=== PATIENT | male | born 2000 | race American Indian/Alaskan Native ===

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

== ENCOUNTER 2019-02-09 23:13 | Emergency (ER) | payer OTHER ==
[2019-02-10 00:13] VITALS: BP 129/91; PULSE 63
[2019-02-10] MEDS ORDERED: Ondansetron 4 MG/2 ML SDV IVPUSH ONE (00:25)
[2019-02-10] MEDS ORDERED: LORazepam 2 MG/ML SDV IVPUSH ONE (00:25)
[2019-02-10] MEDS ORDERED: Sodium Chloride 0.9% 1,000 ML IV SCH (00:30)
--- NOTE | 2019-02-10 00:30 | EDM.PDOC ---
ED HPI GENERAL MEDICAL PROBLEM - General Chief Complaint: Abdominal Pain Stated Complaint: LIGHT HEADED,STOMACH PAINS Time Seen by Provider: 02/10/19 00:15 Source of Information: Reports: Patient History Limitations: Reports: No Limitations - History of Present Illness INITIAL COMMENTS - FREE TEXT/NARRATIVE: 18-year-old male with cyclic vomiting syndrome which has been believe to be related to marijuana use in the past had been doing well for the past year but became nauseated this morning, has been vomiting all day, significant abdominal cramps and chills. No fever. This is very similar to his past episodes. He admits to using marijuana within the last week. Onset: Gradual (Symptoms started this morning) Duration: Hour(s): (Been sick for 12 hours) Location: Reports: Abdomen Improves with: Reports: None Abdominal Pain Score (Numeric/FACES): 8 - Related Data Allergies Allergy/AdvReac Type Severity Reaction Status Date / Time No Known Allergies Allergy Verified 02/10/19 00:07 Home Meds: Home Meds Omeprazole 20 mg PO BID 05/06/18 [History] Past Medical History HEENT History: Reports: Impaired Vision Gastrointestinal History: Reports: Chronic Diarrhea, GERD Musculoskeletal History: Reports: Fracture Other Musculoskeletal History: right foot, left wrist Psychiatric History: Reports: ADHD - Infectious Disease History Infectious Disease History: Reports: Chicken Pox, Influenza - Past Surgical History Head Surgeries/Procedures: Reports: None HEENT Surgical History: Reports: None Cardiovascular Surgical History: Reports: None Respiratory Surgical History: Reports: None GI Surgical History: Reports: Cholecystectomy, Colonoscopy, EGD Musculoskeletal Surgical History: Reports: None Dermatological Surgical History: Reports: None Social & Family History - Family History Family Medical History: Noncontributory - Tobacco Use Smoking Status *Q: Never Smoker - Caffeine Use Caffeine Use: Reports: Soda - Recreational Drug Use Recreational Drug Use: No ED ROS GENERAL - Review of Systems Review Of Systems: See Below Constitutional: Reports: Chills, Malaise. Denies: Fever HEENT: Denies: Throat Pain Respiratory: Denies: Shortness of Breath Cardiovascular: Denies: Chest Pain GI/Abdominal: Reports: Abdominal Pain, Nausea, Vomiting. Denies: Diarrhea : Reports: No Symptoms Musculoskeletal: Reports: No Symptoms Neurological: Denies: Headache ED EXAM, GI/ABD - Physical Exam Exam: See Below Exam Limited By: No Limitations General Appearance: Alert, Mild Distress (Looks uncomfortable) Eyes: Bilateral: Normal Appearance (No jaundice) Respiratory/Chest: No Respiratory Distress, Lungs Clear Cardiovascular: Regular Rate, Rhythm GI/Abdominal Exam: Tender (Mildly tender in the [place]-umbilical area only), Abnormal Bowel Sounds (Bowel sounds are hypoactive) Neurological: Alert, Oriented Psychiatric: Anxious Skin Exam: Warm, Dry Course - Vital Signs Last Recorded V/S: Last Vital Signs Temp 95.1 F L 02/10/19 00:13 Pulse 63 02/10/19 00:13 Resp 19 02/10/19 00:13 BP 129/91 H 02/10/19 00:13 Pulse Ox 100 02/10/19 00:13 - Orders/Labs/Meds Meds: Medications Discontinued Medications Generic Name Dose Route Start Last Admin Trade Name Freq PRN Reason Stop Dose Admin Sodium Chloride 1,000 mls @ 1,000 mls/hr 02/10/19 00:30 02/10/19 00:42 Normal Saline IV 1,000 mls/hr ASDIRECTED CHRIS Administration Lorazepam 1 mg 02/10/19 00:25 02/10/19 00:42 Ativan IVPUSH 02/10/19 00:26 1 mg ONETIME ONE Administration Ondansetron HCl 4 mg 02/10/19 00:25 02/10/19 00:42 Zofran IVPUSH 02/10/19 00:26 4 mg ONETIME ONE Administration - Re-Assessments/Exams Free Text/Narrative Re-Assessment/Exam: 02/10/19 00:29 An IV was started, patient was given 1 mg of IV Ativan and 4 mg of IV Zofran. He 'll be given 1 L of normal saline. Labs will not be repeated, they've always been normal in the past. 02/10/19 01:38 Patient slept soundly for an hour. He was discharged and encouraged to increase activity and diet slowly, concentrate on getting fluids and avoid marijuana. He' ll return if symptoms recur. Departure - Departure Time of Disposition: 01:49 Disposition: Home, Self-Care 01 Clinical Impression: Nausea & vomiting Qualifiers: Vomiting type: unspecified Vomiting Intractability: non-intractable Qualified Code(s): R11.2 - Nausea with vomiting, unspecified - Discharge Information Instructions: Nausea and Vomiting, Adult, [id number] Referrals: PCP,None [Primary Care Provider] - Forms: ED Department Discharge Care Plan Goals: Rest tonight, increase diet and activity tomorrow and concentrate on staying hydrated. Avoid marijuana. Return if symptoms recur in the next 24-48 hours and are not improving.
== END 2019-02-10 01:49 | disposition home or self-care (01) ==
LOC: JP.ED 23:13
DX: R11.2 Nausea with vomiting, unspecified (principal); K21.9 Gastro-esophageal reflux disease without esophagitis; Z90.49 Acquired absence of other specified parts of digestive tract; Z79.899 Other long term (current) drug therapy
CPT/HCPCS: 96361; 96374; 96375; 99283; J2060; J2405; J7030

== ENCOUNTER 2019-02-11 10:22 | Emergency (ER) | payer OTHER ==
[2019-02-11 10:49] VITALS: BP 153/98; PULSE 60
[2019-02-11] MEDS ORDERED: Sodium Chloride 0.9% 1,000 ML IV STA (11:11)
[2019-02-11] MEDS ORDERED: LORazepam 2 MG/ML SDV IVPUSH ONE ×2 (11:12→13:01)
[2019-02-11] MEDS ORDERED: Ondansetron 4 MG/2 ML SDV IVPUSH ONE (11:12)
--- NOTE | 2019-02-11 11:14 | EDM.PDOC ---
ED HPI GENERAL MEDICAL PROBLEM - General Chief Complaint: Gastrointestinal Problem Stated Complaint: VOMITING Time Seen by Provider: 02/11/19 11:14 Source of Information: Reports: Patient - History of Present Illness INITIAL COMMENTS - FREE TEXT/NARRATIVE: 18 years old male patient with history of cyclic vomiting presented with chief complaint of nausea and vomiting started 3 days ago. Patient was here in the ER and was given Zofran and Ativan and the fluid. Stated his symptoms improved for one day then started vomiting again. Denies any abdominal pain but his abdomen feels sore from all the vomiting and dry heaving. Denies any fever. Denies any urinary symptom. Denies any chest pain shortness breath. Denies any cough. Denies any constipation but he feels like his stool may be a little diarrhea. Denies any suspicious food. No recent antibiotic use. No sick contacts. No recent travel. He used marijuana last week. Abdominal Pain Score (Numeric/FACES): 8 - Related Data Allergies Allergy/AdvReac Type Severity Reaction Status Date / Time No Known Allergies Allergy Verified 02/11/19 10:43 Home Meds: Home Meds Omeprazole 20 mg PO BID 05/06/18 [History] Past Medical History HEENT History: Reports: Impaired Vision Gastrointestinal History: Reports: Chronic Diarrhea, GERD Musculoskeletal History: Reports: Fracture Other Musculoskeletal History: right foot, left wrist Psychiatric History: Reports: ADHD - Infectious Disease History Infectious Disease History: Reports: Chicken Pox, Influenza - Past Surgical History Head Surgeries/Procedures: Reports: None HEENT Surgical History: Reports: None Cardiovascular Surgical History: Reports: None Respiratory Surgical History: Reports: None GI Surgical History: Reports: Cholecystectomy, Colonoscopy, EGD Musculoskeletal Surgical History: Reports: None Dermatological Surgical History: Reports: None Social & Family History - Family History Family Medical History: Noncontributory - Tobacco Use Smoking Status *Q: Never Smoker Second Hand Smoke Exposure: No - Caffeine Use Caffeine Use: Reports: Coffee, Soda - Recreational Drug Use Recreational Drug Use: No ED ROS GENERAL - Review of Systems Review Of Systems: ROS reveals no pertinent complaints other than HPI. ED EXAM, GI/ABD - Physical Exam Exam: See Below Exam Limited By: No Limitations General Appearance: Alert, No Apparent Distress Nose: Normal Inspection Throat/Mouth: Normal Inspection Head: Atraumatic, Normocephalic Neck: Normal Inspection, Supple Respiratory/Chest: No Respiratory Distress, Lungs Clear, Normal Breath Sounds, Chest Non-Tender. No: Respiratory Distress, Crackles, Rales, Rhonchi Cardiovascular: Normal Peripheral Pulses, Regular Rate, Rhythm, No Edema, No Murmur. No: Bradycardia, Tachycardia GI/Abdominal Exam: Normal Bowel Sounds, Soft, Non-Tender, No Organomegaly, No Distention, No Abnormal Bruit, No Mass (Male) Exam: No Hernia Neurological: Alert, Oriented, CN II-XII Intact, Normal Cognition, No Motor/ Sensory Deficits Psychiatric: Normal Affect, Normal Mood Course - Vital Signs Last Recorded V/S: Last Vital Signs Temp 36.0 C 02/11/19 10:56 Pulse 60 02/11/19 10:56 Resp 16 02/11/19 10:56 BP 153/98 H 02/11/19 10:56 Pulse Ox 97 02/11/19 10:56 - Orders/Labs/Meds Orders: Active Orders 24 hr Category Date Time Status Cardiac Monitoring [RC] .As Directed Care 02/11/19 11:09 Active UA W/MICROSCOPIC [URIN] Stat Lab 02/11/19 11:09 Ordered Labs: Laboratory Tests 02/11/19 02/11/19 Range/Units 11:26 11:26 WBC 9.6 (4.5-11.0) K/uL RBC 5.30 (4.30-5.90) M/uL Hgb 15.7 H (12.0-15.0) g/dL Hct 45.6 (40.0-54.0) % MCV 86 (80-98) fL MCH 30 (27-31) pg MCHC 34 (32-36) % Plt Count 294 (150-400) K/uL Neut % (Auto) 81 H (36-66) % Lymph % (Auto) 12 L (24-44) % [place] % (Auto) 6 (2-6) % Eos % (Auto) 0 L (2-4) % Baso % (Auto) 0 (0-1) % Sodium 139 L (140-148) mmol/L Potassium 3.0 L (3.6-5.2) mmol/L Chloride 101 (100-108) mmol/L Carbon Dioxide 27 (21-32) mmol/L Anion Gap 14.0 (5.0-14.0) mmol/L BUN 18 (7-18) mg/dL Creatinine 1.1 (0.8-1.3) mg/dL Est Cr Clr Drug Dosing 102.58 mL/min Estimated GFR (MDRD) > 60 (>60) Glucose 120 H (74-106) mg/dL Calcium 9.1 (8.5-10.1) mg/dL Total Bilirubin 0.9 (0.2-1.0) mg/dL AST 19 (15-37) U/L ALT 45 (12-78) U/L Alkaline Phosphatase 66 (46-116) U/L C-Reactive Protein < 0.30 (0.0-0.3) mg/dL Total Protein 7.4 (6.4-8.2) g/dL Albumin 4.3 (3.4-5.0) g/dL Globulin 3.1 (2.3-3.5) g/dL Albumin/Globulin Ratio 1.4 (1.2-2.2) Lipase 86 (73-393) U/L Meds: Medications Discontinued Medications Generic Name Dose Route Start Last Admin Trade Name Freq PRN Reason Stop Dose Admin Sodium Chloride 1,000 mls @ 999 mls/hr 02/11/19 11:11 02/11/19 11:21 Normal Saline IV 02/11/19 12:11 999 mls/hr .BOLUS STA Administration Lorazepam 1 mg 02/11/19 11:12 02/11/19 11:21 Ativan IVPUSH 02/11/19 11:13 1 mg BEDTIME ONE Administration Lorazepam 1 mg 02/11/19 13:01 02/11/19 13:05 Ativan IVPUSH 02/11/19 13:02 1 mg ONETIME ONE Administration Ondansetron HCl 4 mg 02/11/19 11:12 02/11/19 11:21 Zofran IVPUSH 02/11/19 11:13 4 mg ONETIME ONE Administration Potassium Chloride 30 meq 02/11/19 12:30 02/11/19 12:25 Potassium Chloride PO 02/11/19 12:31 30 meq ONETIME ONE Administration - Radiology Interpretation Free Text/Narrative:: Patient was seen and examined shortly after arrival. Stable. Given 1 L normal saline bolus and 4 mg IV Zofran. Patient requested Ativan. Was given 1 mg IV Ativan. Lab reviewed with the patient. Potassium 3. He was given 30 mEq potassium chloride. Patient vomited once again. Was given another milligram of IV Ativan. As she stated the only thing work for his vomiting is Ativan and does want take more Zofran. Symptoms improved. No ominous sign. No sign of acute appendicitis, colitis, bowel obstruction, ascending cholangitis, perforation, sepsis, etc. At this point this is most likely cyclic vomiting and possibly aggravated by his marijuana. Advised to quit using marijuana. Patient requested a prescription for Ativan and was advised to follow-up with his doctor for that. I'll give him a prescription for Zofran. Does come back if symptom worsen. Otherwise follow up with his primary doctor. Also advised to eat more potassium rich food-like banana. Repeat potassium level in 3-4 days. Patient agrees with the plan. Stable for discharge. Departure - Departure Time of Disposition: 13:21 Disposition: Home, Self-Care 01 Condition: Good Clinical Impression: Vomiting, Vomiting - Discharge Information Instructions: Nausea and Vomiting, Adult Referrals: PCP,None [Primary Care Provider] - Forms: ED Department Discharge Additional Instructions: Rest and stay well-hydrated Drink plenty fluids Eat more potassium rich food-like banana and repeat potassium level in 3-4 days quit using marijuana Close follow-up with PCP Come back if symptom worsen - My Orders Last 24 Hours: My Active Orders 02/11/19 11:09 Cardiac Monitoring [RC] .As Directed UA W/MICROSCOPIC [URIN] Stat - Assessment/Plan Last 24 Hours: My Active Orders 02/11/19 11:09 Cardiac Monitoring [RC] .As Directed UA W/MICROSCOPIC [URIN] Stat Plan: Rest and stay well-hydrated Drink plenty fluids Eat more potassium rich food-like banana and repeat potassium level in 3-4 days quit using marijuana Close follow-up with PCP Come back if symptom worsen
[2019-02-11] MEDS ORDERED: Potassium Chloride 20 MEQ Tab.ER PO ONE (12:18)
[2019-02-11] MEDS ORDERED: Potassium Chloride 10 MEQ Cap.ER PO ONE (12:30)
== END 2019-02-11 13:29 | disposition home or self-care (01) ==
LOC: JP.ED 10:22
DX: R11.2 Nausea with vomiting, unspecified (principal); K21.9 Gastro-esophageal reflux disease without esophagitis; Z79.899 Other long term (current) drug therapy
CPT/HCPCS: 36415; 80053; 83690; 85025; 86140; 96361; 96374; 96375; 96376; 99284; A9270; J2060; J2405; J7030

== ENCOUNTER 2019-03-06 22:28 | Emergency (ER) | payer OTHER ==
[2019-03-06 22:46] VITALS: BP 143/99
[2019-03-06] MEDS: Sodium Chloride 0.9% 1,000 ML IV ONE (23:46)
[2019-03-06] MEDS: Prochlorperazine 10 MG/2 ML SDV IVPUSH ONE (23:47)
[2019-03-06] MEDS: Sodium Chloride 0.9% 10 ML Syringe FLUSH PRN (23:50)
[2019-03-06] MEDS: diphenhydrAMINE 50 MG/ML SDV IVPUSH ONE (23:51)
[2019-03-07] MEDS: Sodium Chloride 0.9% 1,000 ML IV ONE (00:48)
--- NOTE | 2019-03-07 01:41 | EDM.PDOC ---
ED HPI GENERAL MEDICAL PROBLEM - General Chief Complaint: Gastrointestinal Problem Stated Complaint: THROWING UP Time Seen by Provider: 03/06/19 23:12 Source of Information: Reports: Patient History Limitations: Reports: No Limitations - History of Present Illness INITIAL COMMENTS - FREE TEXT/NARRATIVE: This patient comes in for vomiting for the past few days he has been treated a number of times for vomiting episodes. 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 He denies using marijuana any more however. He does not have a PCP. He said last year he had an an EGD and saw a GI specialist in [place]. He would like something for the nausea and thinks that fluids may help. abd pain Pain Score (Numeric/FACES): 8 - Related Data Allergies Allergy/AdvReac Type Severity Reaction Status Date / Time No Known Allergies Allergy Verified 03/06/19 23:09 Home Meds: Home Meds Omeprazole 20 mg PO BID 05/06/18 [History] Past Medical History HEENT History: Reports: Impaired Vision Gastrointestinal History: Reports: GERD Musculoskeletal History: Reports: Fracture, Other (See Below) Other Musculoskeletal History: right foot, left wrist Neurological History: Reports: Concussion Psychiatric History: Reports: ADHD - Infectious Disease History Infectious Disease History: Reports: Chicken Pox - Past Surgical History Head Surgeries/Procedures: Reports: None Respiratory Surgical History: Reports: None GI Surgical History: Reports: Cholecystectomy, Colonoscopy, EGD Social & Family History - Family History Family Medical History: Noncontributory - Tobacco Use Smoking Status *Q: Never Smoker - Caffeine Use Caffeine Use: Reports: Soda - Recreational Drug Use Recreational Drug Use: No ED ROS GENERAL - Review of Systems Review Of Systems: ROS reveals no pertinent complaints other than HPI. ED EXAM, GI/ABD - Physical Exam Exam: See Below Exam Limited By: No Limitations General Appearance: Alert, WD/WN, Active Emesis (There appears to be having dry heaves) Eyes: Bilateral: Normal Appearance Throat/Mouth: Normal Inspection Head: Atraumatic Neck: Normal Inspection Respiratory/Chest: Lungs Clear Cardiovascular: Regular Rate, Rhythm GI/Abdominal Exam: Normal Bowel Sounds, Soft, Non-Tender Extremities: Normal Inspection Neurological: Alert, Oriented Psychiatric: Normal Affect Skin Exam: Warm, Dry Course - Vital Signs Last Recorded V/S: Last Vital Signs Temp 35.7 C 03/06/19 23:10 Pulse 83 03/06/19 23:10 Resp 16 03/06/19 23:10 BP 143/99 H 03/06/19 23:10 Pulse Ox 94 L 03/06/19 23:10 - Orders/Labs/Meds Orders: Active Orders 24 hr Category Date Time Status Sodium Chloride 0.9% [Normal Saline] 1,000 ml Med 03/07/19 00:44 Active IV .BOLUS Sodium Chloride 0.9% [Saline Flush] Med 03/06/19 23:32 Active 10 ml FLUSH ASDIRECTED PRN Saline Lock Insert [OM.PC] Urgent Oth 03/06/19 23:32 Ordered Medication Orders Sodium Chloride (Normal Saline) 1,000 mls @ 999 mls/hr IV .BOLUS ONE Stop: 03/07/19 01:44 Last Admin: 03/07/19 00:48 Dose: 999 mls/hr Sodium Chloride (Saline Flush) 10 ml FLUSH ASDIRECTED PRN PRN Reason: Keep Vein Open Last Admin: 03/06/19 23:50 Dose: 10 ml Labs: Laboratory Tests 03/06/19 03/06/19 Range/Units 23:32 23:32 WBC 11.5 H (4.5-11.0) K/uL RBC 5.12 (4.30-5.90) M/uL Hgb 15.1 H (12.0-15.0) g/dL Hct 43.7 (40.0-54.0) % MCV 85 (80-98) fL MCH 30 (27-31) pg MCHC 35 (32-36) % Plt Count 330 (150-400) K/uL Neut % (Auto) 88 H (36-66) % Lymph % (Auto) 9 L (24-44) % [place] % (Auto) 3 (2-6) % Eos % (Auto) 0 L (2-4) % Baso % (Auto) 0 (0-1) % Sodium 138 L (140-148) mmol/L Potassium 3.5 L (3.6-5.2) mmol/L Chloride 101 (100-108) mmol/L Carbon Dioxide 24 (21-32) mmol/L Anion Gap 16.5 H (5.0-14.0) mmol/L BUN 8 D (7-18) mg/dL Creatinine 0.8 (0.8-1.3) mg/dL Est Cr Clr Drug Dosing 135.00 mL/min Estimated GFR (MDRD) > 60 (>60) Glucose 124 H (74-106) mg/dL Calcium 9.4 (8.5-10.1) mg/dL Total Bilirubin 0.7 (0.2-1.0) mg/dL AST 15 (15-37) U/L ALT 49 (12-78) U/L Alkaline Phosphatase 71 (46-116) U/L Total Protein 7.7 (6.4-8.2) g/dL Albumin 4.5 (3.4-5.0) g/dL Globulin 3.2 (2.3-3.5) g/dL Albumin/Globulin Ratio 1.4 (1.2-2.2) Meds: Medications Generic Name Dose Route Start Last Admin Trade Name Tanika PRN Reason Stop Dose Admin Sodium Chloride 1,000 mls @ 999 mls/hr 03/07/19 00:44 03/07/19 00:48 Normal Saline IV 03/07/19 01:44 999 mls/hr .BOLUS ONE Administration Sodium Chloride 10 ml 03/06/19 23:32 03/06/19 23:50 Saline Flush FLUSH 10 ml ASDIRECTED PRN Administration Keep Vein Open Discontinued Medications Generic Name Dose Route Start Last Admin Trade Name Leiq PRN Reason Stop Dose Admin Diphenhydramine HCl 25 mg 03/06/19 23:32 03/06/19 23:51 Benadryl IVPUSH 03/06/19 23:33 25 mg ONETIME ONE Administration Sodium Chloride 1,000 mls @ 999 mls/hr 03/06/19 23:32 03/06/19 23:46 Normal Saline IV 03/07/19 00:32 999 mls/hr .BOLUS ONE Administration Prochlorperazine Edisylate 10 mg 03/06/19 23:32 03/06/19 23:47 Compazine IVPUSH 03/06/19 23:33 10 mg ONETIME ONE Administration - Re-Assessments/Exams Free Text/Narrative Re-Assessment/Exam: 03/07/19 01:38 IV was established he was given 2 L IV normal saline. He also received Compazine 10 mg and Benadryl 25 mg IV. When checked after approximately 1.5 L of IV fluid he said he feels much better and is feeling like he can go home now. He asked for medications for nausea to go home with he requested something like a Compazine I gave him so give him Phenergan he is aware that this causes a lot of sedation and will impair driving. His girlfriend or significant other will be driving for him Departure - Departure Time of Disposition: 01:39 Disposition: Home, Self-Care 01 Condition: Fair Clinical Impression: Cyclic vomiting syndrome, Cyclic vomiting - Discharge Information Referrals: PCP,None [Primary Care Provider] - Additional Instructions: For nausea take Phenergan 25 mg orally every 6-8 hours. This medication can cause severe sedation and impair driving so don't ever operate a vehicle or dangerous machinery while you're using this medication. I recommend you get a regular family doctor locally. - My Orders Last 24 Hours: My Active Orders 03/06/19 23:32 Sodium Chloride 0.9% [Saline Flush] 10 ml FLUSH ASDIRECTED PRN Saline Lock Insert [OM.PC] Urgent 03/07/19 00:44 Sodium Chloride 0.9% [Normal Saline] 1,000 ml IV .BOLUS - Assessment/Plan Last 24 Hours: My Active Orders 03/06/19 23:32 Sodium Chloride 0.9% [Saline Flush] 10 ml FLUSH ASDIRECTED PRN Saline Lock Insert [OM.PC] Urgent 03/07/19 00:44 Sodium Chloride 0.9% [Normal Saline] 1,000 ml IV .BOLUS
== END 2019-03-07 01:53 | disposition home or self-care (01) ==
LOC: JP.ED 22:28
DX: G43.A0 Cyclical vomiting, in migraine, not intractable (principal); K21.9 Gastro-esophageal reflux disease without esophagitis; Z79.899 Other long term (current) drug therapy
CPT/HCPCS: 36415; 80053; 85025; 96361; 96374; 96375; 99284; J0780; J1200; J7030

== ENCOUNTER 2019-11-09 16:40 | Emergency (ER) | payer OTHER ==
[2019-11-09 16:51] VITALS: BP 138/96; PULSE 66
[2019-11-09] MEDS ORDERED: Ondansetron 4 MG/2 ML SDV IVPUSH ONE ×2 (16:54→18:09)
[2019-11-09] MEDS ORDERED: Sodium Chloride 0.9% 1,000 ML IV SCH ×2 (17:00→18:15)
--- NOTE | 2019-11-09 17:20 | EDM.PDOC ---
<Kiana Monreal - Last Filed: 11/09/19 18:11> ED HPI GENERAL MEDICAL PROBLEM - General Chief Complaint: Gastrointestinal Problem Stated Complaint: VOMITING,BODY ACHES Time Seen by Provider: 11/09/19 17:20 Source of Information: Reports: Patient History Limitations: Reports: No Limitations - History of Present Illness INITIAL COMMENTS - FREE TEXT/NARRATIVE: pt arrived with some upper abdomanal pain and marked vomiting for the past 2 days, He has had episodes like this in the past. He has had a jackie. Onset: Other (last 2 days. ) Duration: Hour(s): Location: Reports: Abdomen Associated Symptoms: Reports: Nausea/Vomiting - Related Data Allergies Allergy/AdvReac Type Severity Reaction Status Date / Time No Known Allergies Allergy Verified 11/09/19 16:54 Home Meds: Home Meds Omeprazole 20 mg PO BID 05/06/18 [History] Citalopram [Citalopram HBr] 10 mg PO DAILY 11/09/19 [History] Past Medical History HEENT History: Reports: Impaired Vision Gastrointestinal History: Reports: GERD Musculoskeletal History: Reports: Fracture, Other (See Below) Other Musculoskeletal History: right foot, left wrist Neurological History: Reports: Concussion Psychiatric History: Reports: ADHD - Infectious Disease History Infectious Disease History: Reports: Chicken Pox - Past Surgical History Head Surgeries/Procedures: Reports: None HEENT Surgical History: Reports: None Cardiovascular Surgical History: Reports: None Respiratory Surgical History: Reports: None GI Surgical History: Reports: Cholecystectomy, Colonoscopy, EGD Neurological Surgical History: Reports: None Musculoskeletal Surgical History: Reports: None Dermatological Surgical History: Reports: None Social & Family History - Family History Family Medical History: Noncontributory - Tobacco Use Smoking Status *Q: Never Smoker Second Hand Smoke Exposure: No - Caffeine Use Caffeine Use: Reports: Soda - Recreational Drug Use Recreational Drug Use: Yes Drug Use in Last 12 Months: Yes Recreational Drug Type: Reports: Marijuana/Hashish Recreational Drug Use Frequency: Weekly ED ROS GENERAL - Review of Systems Review Of Systems: See Below Constitutional: Reports: No Symptoms HEENT: Reports: No Symptoms Respiratory: Reports: No Symptoms Cardiovascular: Reports: No Symptoms Endocrine: Reports: No Symptoms GI/Abdominal: Reports: Abdominal Pain, Nausea, Vomiting : Reports: Other ( very slight dysuria) Musculoskeletal: Reports: Muscle Pain ED EXAM, GI/ABD - Physical Exam Exam: See Below Text/Narrative:: pt arrived with pain in the upper abdoman and marked vomiting. He has had a jackie Exam Limited By: No Limitations General Appearance: Alert, Anxious, Moderate Distress Ears: Normal TMs Nose: Normal Inspection Throat/Mouth: Normal Inspection Head: Atraumatic Neck: Normal Inspection Respiratory/Chest: No Respiratory Distress Cardiovascular: Regular Rate, Rhythm GI/Abdominal Exam: Soft, Other (pt has no guarding. ) (Male) Exam: Deferred Rectal (Males) Exam: Deferred Back Exam: Normal Inspection Neurological: Alert, Oriented, Normal Cognition Course - Vital Signs Last Recorded V/S: Last Vital Signs Temp 96.8 F L 11/09/19 17:06 Pulse 66 11/09/19 17:06 Resp 16 11/09/19 17:06 BP 138/96 H 11/09/19 17:06 Pulse Ox 97 11/09/19 17:06 - Orders/Labs/Meds Orders: Active Orders 24 hr Category Date Time Status CULTURE URINE [RM] Stat Lab 11/09/19 18:15 Received Labs: Laboratory Tests 11/09/19 11/09/19 11/09/19 Range/Units 16:53 16:53 17:06 WBC 12.2 H (4.5-11.0) K/uL RBC 5.67 (4.30-5.90) M/uL Hgb 16.7 H (12.0-15.0) g/dL Hct 48.5 (40.0-54.0) % MCV 86 (80-98) fL MCH 30 (27-31) pg MCHC 34 (32-36) % Plt Count 310 (150-400) K/uL Neut % (Auto) 83 H (36-66) % Lymph % (Auto) 10 L (24-44) % [place] % (Auto) 7 H (2-6) % Eos % (Auto) 0 L (2-4) % Baso % (Auto) 0 (0-1) % Sodium 138 L (140-148) mmol/L Potassium 3.3 L (3.6-5.2) mmol/L Chloride 101 (100-108) mmol/L Carbon Dioxide 24 (21-32) mmol/L Anion Gap 16.3 H (5.0-14.0) mmol/L BUN 20 H D (7-18) mg/dL Creatinine 1.1 (0.8-1.3) mg/dL Est Cr Clr Drug Dosing 113.89 mL/min Estimated GFR (MDRD) > 60 (>60) Glucose 116 H (74-106) mg/dL Calcium 9.1 (8.5-10.1) mg/dL Total Bilirubin 1.0 (0.2-1.0) mg/dL AST 51 H D (15-37) U/L ALT 114 H (12-78) U/L Alkaline Phosphatase 82 (46-116) U/L C-Reactive Protein (0.0-0.3) mg/dL Total Protein 7.7 (6.4-8.2) g/dL Albumin 4.6 (3.4-5.0) g/dL Globulin 3.1 (2.3-3.5) g/dL Albumin/Globulin Ratio 1.5 (1.2-2.2) Lipase (73-393) U/L Urine Color [place] A (YELLOW) Urine Appearance Clear (CLEAR) Urine pH 6.0 (5.0-8.0) Ur Specific [place] >= 1.030 (1.008-1.030) Urine Protein 100 H (NEGATIVE) mg/dL Urine Glucose (UA) Negative (NEGATIVE) mg/dL Urine Ketones Negative (NEGATIVE) mg/dL Urine Occult Blood Trace-intact H (NEGATIVE) Urine Nitrite Positive H (NEGATIVE) Urine Bilirubin Moderate H (NEGATIVE) Urine Urobilinogen 0.2 (0.2-1.0) EU/dL Ur Leukocyte Esterase Negative (NEGATIVE) Urine RBC 0-5 (0-5) Urine WBC 0-5 (0-5) Ur Epithelial Cells Not seen Amorphous Sediment Few Urine Bacteria Few Urine Mucus Not seen Urine Opiates Screen (NEGATIVE) Ur Oxycodone Screen (NEGATIVE) Urine Methadone Screen (NEGATIVE) Ur Propoxyphene Screen (NEGATIVE) Ur Barbiturates Screen (NEGATIVE) Ur Tricyclics Screen (NEGATIVE) Ur Phencyclidine Scrn (NEGATIVE) Ur Amphetamine Screen (NEGATIVE) U Methamphetamines Scrn (NEGATIVE) Urine MDMA Screen (NEGATIVE) U Benzodiazepines Scrn (NEGATIVE) U Cocaine Metab Screen (NEGATIVE) U Marijuana (THC) Screen (NEGATIVE) 11/09/19 11/09/19 11/09/19 Range/Units 18:10 18:10 18:12 WBC (4.5-11.0) K/uL RBC (4.30-5.90) M/uL Hgb (12.0-15.0) g/dL Hct (40.0-54.0) % MCV (80-98) fL MCH (27-31) pg MCHC (32-36) % Plt Count (150-400) K/uL Neut % (Auto) (36-66) % Lymph % (Auto) (24-44) % [place] % (Auto) (2-6) % Eos % (Auto) (2-4) % Baso % (Auto) (0-1) % Sodium (140-148) mmol/L Potassium (3.6-5.2) mmol/L Chloride (100-108) mmol/L Carbon Dioxide (21-32) mmol/L Anion Gap (5.0-14.0) mmol/L BUN (7-18) mg/dL Creatinine (0.8-1.3) mg/dL Est Cr Clr Drug Dosing mL/min Estimated GFR (MDRD) (>60) Glucose (74-106) mg/dL Calcium (8.5-10.1) mg/dL Total Bilirubin (0.2-1.0) mg/dL AST (15-37) U/L ALT (12-78) U/L Alkaline Phosphatase (46-116) U/L C-Reactive Protein 0.05 (0.0-0.3) mg/dL Total Protein (6.4-8.2) g/dL Albumin (3.4-5.0) g/dL Globulin (2.3-3.5) g/dL Albumin/Globulin Ratio (1.2-2.2) Lipase 77 (73-393) U/L Urine Color (YELLOW) Urine Appearance (CLEAR) Urine pH (5.0-8.0) Ur Specific [place] (1.008-1.030) Urine Protein (NEGATIVE) mg/dL Urine Glucose (UA) (NEGATIVE) mg/dL Urine Ketones (NEGATIVE) mg/dL Urine Occult Blood (NEGATIVE) Urine Nitrite (NEGATIVE) Urine Bilirubin (NEGATIVE) Urine Urobilinogen (0.2-1.0) EU/dL Ur Leukocyte Esterase (NEGATIVE) Urine RBC (0-5) Urine WBC (0-5) Ur Epithelial Cells Amorphous Sediment Urine Bacteria Urine Mucus Urine Opiates Screen Negative (NEGATIVE) Ur Oxycodone Screen Negative (NEGATIVE) Urine Methadone Screen Negative (NEGATIVE) Ur Propoxyphene Screen Negative (NEGATIVE) Ur Barbiturates Screen Negative (NEGATIVE) Ur Tricyclics Screen Negative (NEGATIVE) Ur Phencyclidine Scrn Negative (NEGATIVE) Ur Amphetamine Screen Negative (NEGATIVE) U Methamphetamines Scrn Negative (NEGATIVE) Urine MDMA Screen Negative (NEGATIVE) U Benzodiazepines Scrn Negative (NEGATIVE) U Cocaine Metab Screen Negative (NEGATIVE) U Marijuana (THC) Screen Presumptive positive H (NEGATIVE) Meds: Medications Discontinued Medications Generic Name Dose Route Start Last Admin Trade Name Freq PRN Reason Stop Dose Admin Sodium Chloride 1,000 mls @ 999 mls/hr 11/09/19 17:00 11/09/19 17:04 Normal Saline IV 999 mls/hr ASDIRECTED CHRIS Administration Sodium Chloride 1,000 mls @ 999 mls/hr 11/09/19 18:15 11/09/19 18:21 Normal Saline IV 999 mls/hr ASDIRECTED CHRIS Administration Lorazepam 1 mg 11/09/19 18:29 11/09/19 18:40 Ativan IVPUSH 11/09/19 18:30 1 mg ONETIME ONE Administration Ondansetron HCl 4 mg 11/09/19 16:54 11/09/19 17:05 Zofran IVPUSH 11/09/19 16:55 4 mg ONETIME ONE Administration Ondansetron HCl 4 mg 11/09/19 18:09 11/09/19 18:21 Zofran IVPUSH 11/09/19 18:10 4 mg ONETIME ONE Administration - Re-Assessments/Exams Free Text/Narrative Re-Assessment/Exam: 11/09/19 18:16 pt has a urine positive for nitrites, He has up liver enzymes, He is mainly nauseated and is not having alot of upper abdomanal pain,.pt states this started about 2 days ago. He has had an episode about 2 monthes ago. He does smoke marajauna regularly. 11/09/19 18:18 Departure - Departure Disposition: Home, Self-Care 01 Clinical Impression: Cyclic vomiting syndrome, Marijuana abuse - Discharge Information Instructions: Nausea and Vomiting, Adult, [id number] Referrals: PCP,None [Primary Care Provider] - Forms: ED Department Discharge Care Plan Goals: Use Zofran every 6 hours for nausea and vomiting, increase fluids as tolerated for the next 12 to 24 hours. Recheck if not improving after 1 to 2 days. Sepsis Event Note - Evaluation Sepsis Screening Result: No Definite Risk - Focused Exam Vital Signs: Vital Signs Temp Pulse Resp BP Pulse Ox 11/09/19 17:06 96.8 F L 66 16 138/96 H 97 11/09/19 16:49 96.8 F L 66 16 138/96 H 97 Date Exam was Performed: 11/09/19 Time Exam was Performed: 18:11 <Thompson Katz - Last Filed: 11/09/19 19:14> Course - Re-Assessments/Exams Free Text/Narrative Re-Assessment/Exam: 11/09/19 19:13 19-year-old male with a cyclic vomiting episode initially evaluated and cared for by Dr. Monreal. Care turned over pending response to medications. He was still nauseated, so was given 1 mg of IV Ativan. He markedly improved after this, was discharged with oral Zofran. Departure - Departure Time of Disposition: 18:55 Sepsis Event Note - Focused Exam Date Exam was Performed: 11/09/19 Time Exam was Performed: 19:13
[2019-11-09] MEDS ORDERED: LORazepam 2 MG/ML SDV IVPUSH ONE (18:29)
== END 2019-11-09 19:05 | disposition home or self-care (01) ==
LOC: JP.ED 16:40
DX: R11.15 Cyclical vomiting syndrome unrelated to migraine (principal); F12.10 Cannabis abuse, uncomplicated; R10.10 Upper abdominal pain, unspecified; K21.9 Gastro-esophageal reflux disease without esophagitis; Z90.49 Acquired absence of other specified parts of digestive tract; Z79.899 Other long term (current) drug therapy
CPT/HCPCS: 36415; 80053; 80305; 81001; 83690; 85025; 86140; 87086; 96361; 96374; 96375; 96376; 99284; J2060; J2405; J7030

== ENCOUNTER 2019-12-28 23:54 | Emergency (ER) | payer OTHER ==
--- NOTE | 2019-12-29 00:25 | EDM.PDOC ---
ED HPI GENERAL MEDICAL PROBLEM - General Chief Complaint: Lower Extremity Injury/Pain Stated Complaint: LEFT LEG INJURY Time Seen by Provider: 12/29/19 00:20 Source of Information: Reports: Patient, RN History Limitations: Reports: No Limitations - History of Present Illness INITIAL COMMENTS - FREE TEXT/NARRATIVE: 19 yo NA male was walking in the rain and the slipped on the wet side walk and injured his R leg just above the ankle. He thought he felt a pop. Has been able to bear weight. No self tx. Has been drinking ETOH. 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) (none) Right Lower Leg Pain Score (Numeric/FACES): 8 - Related Data Allergies Allergy/AdvReac Type Severity Reaction Status Date / Time No Known Allergies Allergy Verified 12/29/19 00:13 Home Meds: Home Meds Omeprazole 20 mg PO BID 05/06/18 [History] Citalopram [Citalopram HBr] 10 mg PO DAILY 11/09/19 [History] Past Medical History HEENT History: Reports: Impaired Vision Gastrointestinal History: Reports: GERD Musculoskeletal History: Reports: Fracture, Other (See Below) Other Musculoskeletal History: right foot, left wrist Neurological History: Reports: Concussion Psychiatric History: Reports: ADHD - Infectious Disease History Infectious Disease History: Reports: Chicken Pox - Past Surgical History Head Surgeries/Procedures: Reports: None HEENT Surgical History: Reports: None Cardiovascular Surgical History: Reports: None Respiratory Surgical History: Reports: None GI Surgical History: Reports: Cholecystectomy, Colonoscopy, EGD Neurological Surgical History: Reports: None Musculoskeletal Surgical History: Reports: None Dermatological Surgical History: Reports: None Social & Family History - Family History Family Medical History: Noncontributory - Tobacco Use Smoking Status *Q: Never Smoker - Caffeine Use Caffeine Use: Reports: Soda Other Caffeine Use: occasionally - Recreational Drug Use Recreational Drug Use: No Review of Systems - Review of Systems Review Of Systems: See Below Constitutional: Reports: No Symptoms Musculoskeletal: Reports: Leg Pain (R distal leg). Denies: Foot Pain, Joint Pain Skin: Reports: No Symptoms Neurological: Reports: No Symptoms ED EXAM, GENERAL - Physical Exam Exam: See Below Exam Limited By: No Limitations General Appearance: Alert, WD/WN, No Apparent Distress Extremities: Normal Inspection, Normal Range of Motion, No Pedal Edema. No: Non-Tender (tender with palpation just above the R ankle. ), Joint Swelling, Limited Range of Motion, Increased Warmth, Redness Neurological: Alert, Oriented, CN II-XII Intact, Normal Cognition, No Motor/Sensory Deficits Psychiatric: Normal Affect, Normal Mood Skin Exam: Warm, Dry, Intact, Normal Color, No Rash Course - Vital Signs Last Recorded V/S: Last Vital Signs Temp 35.2 C L 12/29/19 00:19 Pulse 89 12/29/19 00:19 Resp 16 12/29/19 00:19 BP 129/71 12/29/19 00:19 Pulse Ox 97 12/29/19 00:19 - Orders/Labs/Meds Orders: Active Orders 24 hr Category Date Time Status Tibia Fibula Rt [CR] Stat Exams 12/29/19 00:24 Ordered Meds: Medications Discontinued Medications Generic Name Dose Route Start Last Admin Trade Name Tanika PRN Reason Stop Dose Admin Ibuprofen 600 mg 12/29/19 00:31 12/29/19 00:36 Motrin PO 12/29/19 00:32 600 mg ONETIME ONE Administration - Radiology Interpretation Free Text/Narrative:: R tib/fib X-ray-neg Departure - Departure Time of Disposition: 00:45 Disposition: Home, Self-Care 01 Condition: Good Clinical Impression: Leg pain, right - Discharge Information *PRESCRIPTION DRUG MONITORING PROGRAM REVIEWED*: No *COPY OF PRESCRIPTION DRUG MONITORING REPORT IN PATIENT JOHN: No Referrals: PCP,None [Primary Care Provider] - Forms: ED Department Discharge Additional Instructions: Take ibuprofen and/or acetaminophen for pain relief. Rest. Recheck with your provider if pain is still present in a week. Sepsis Event Note (ED) - Evaluation Sepsis Screening Result: No Definite Risk - Focused Exam Vital Signs: Vital Signs Temp Pulse Resp BP Pulse Ox 12/29/19 00:19 35.2 C L 89 16 129/71 97 12/29/19 00:12 35.2 C L 89 16 129/71 97 - My Orders Last 24 Hours: My Active Orders 12/29/19 00:24 Tibia Fibula Rt [CR] Stat - Assessment/Plan Last 24 Hours: My Active Orders 12/29/19 00:24 Tibia Fibula Rt [CR] Stat
[2019-12-29] MEDS ORDERED: Ibuprofen 600 MG Tab PO ONE (00:31)
[2019-12-29 00:39] VITALS: BP 129/71; PULSE 89
--- NOTE | 2019-12-30 09:27 | CR ---
Tibia Fibula Rt CLINICAL HISTORY: Injury FINDINGS: Two views show no evidence of fracture or bone destruction. No soft tissue abnormality is seen. Impression: Negative
== END 2019-12-29 00:53 | disposition home or self-care (01) ==
LOC: JP.ED 23:54
DX: M79.661 Pain in right lower leg (principal); K21.9 Gastro-esophageal reflux disease without esophagitis; Z79.899 Other long term (current) drug therapy; W01.0XXA Fall on same level from slipping, tripping and stumbling without subsequent striking against object, initial encounter
CPT/HCPCS: 73590; 99283; A9270

== ENCOUNTER 2020-12-17 17:34 | Emergency (ER) | payer OTHER ==
[2020-12-17] MEDS ORDERED: Ondansetron 4 MG/2 ML SDV IVPUSH ONE (18:57)
[2020-12-17] MEDS ORDERED: Sodium Chloride 0.9% 10 ML Syringe FLUSH PRN (18:57)
[2020-12-17] MEDS ORDERED: Sodium Chloride 0.9% 1,000 ML IV SCH (19:00)
[2020-12-17 19:17] VITALS: BP 127/77; PULSE 64
--- NOTE | 2020-12-17 20:10 | EDM.PDOC ---
ED HPI GENERAL MEDICAL PROBLEM - General Chief Complaint: Gastrointestinal Problem Stated Complaint: NAUSEA AND VOMITTING Time Seen by Provider: 12/17/20 18:53 Source of Information: Reports: Patient History Limitations: Reports: No Limitations - History of Present Illness INITIAL COMMENTS - FREE TEXT/NARRATIVE: Patient is a 20-year-old male presenting to the ED for evaluation of nausea, vomiting, diarrhea, and generalized abdominal pain for the last 2 to 3 days. Patient denies any fever, chills, headache or body aches, cough or shortness of breath. He has had no urinary symptoms including urgency, frequency, or burning with urination. He has not recall being around anyone else it has been ill. He has not been into any buffets recently. Abdominal Pain Score (Numeric/FACES): 6 - Related Data Allergies Allergy/AdvReac Type Severity Reaction Status Date / Time No Known Allergies Allergy Verified 12/17/20 18:00 Home Meds: Home Meds Omeprazole 20 mg PO BID 05/06/18 [History] Citalopram [Citalopram HBr] 10 mg PO DAILY 11/09/19 [History] Past Medical History HEENT History: Reports: Impaired Vision Gastrointestinal History: Reports: GERD Musculoskeletal History: Reports: Fracture, Other (See Below) Other Musculoskeletal History: right foot, left wrist Neurological History: Reports: Concussion Psychiatric History: Reports: ADHD - Infectious Disease History Infectious Disease History: Reports: Chicken Pox, Novel Coronavirus - Past Surgical History Head Surgeries/Procedures: Reports: None HEENT Surgical History: Reports: None Cardiovascular Surgical History: Reports: None Respiratory Surgical History: Reports: None GI Surgical History: Reports: Cholecystectomy, Colonoscopy, EGD Neurological Surgical History: Reports: None Musculoskeletal Surgical History: Reports: None Dermatological Surgical History: Reports: None Social & Family History - Family History Family Medical History: No Pertinent Family History - Tobacco Use Tobacco Use Status *Q: Never Tobacco User - Caffeine Use Caffeine Use: Reports: Soda Other Caffeine Use: occasionally - Recreational Drug Use Recreational Drug Use: No ED ROS GENERAL - Review of Systems Review Of Systems: See Below Constitutional: Reports: Decreased Appetite HEENT: Reports: No Symptoms Respiratory: Reports: No Symptoms Cardiovascular: Reports: No Symptoms Endocrine: Reports: No Symptoms GI/Abdominal: Reports: Abdominal Pain (Generalized), Diarrhea, Nausea, Vomiting : Reports: No Symptoms Musculoskeletal: Reports: No Symptoms Skin: Reports: No Symptoms Neurological: Reports: Dizziness (Lightheadedness with position change) Psychiatric: Reports: No Symptoms Hematologic/Lymphatic: Reports: No Symptoms Immunologic: Reports: No Symptoms ED EXAM, GI/ABD - Physical Exam Exam: See Below Exam Limited By: No Limitations General Appearance: Alert, Anxious, Mild Distress Eyes: Bilateral: EOMI Throat/Mouth: Other (Dry mucous membranes) Head: Atraumatic, Normocephalic Neck: Normal Inspection, Supple Respiratory/Chest: No Respiratory Distress, Lungs Clear, Normal Breath Sounds Cardiovascular: Normal Peripheral Pulses, Regular Rate, Rhythm, No Murmur GI/Abdominal Exam: Tender (Mild diffuse tenderness), Abnormal Bowel Sounds (Diminished bowel sounds). No: Guarding, Rigid, Rebound Extremities: Normal Inspection, Normal Range of Motion Neurological: Alert, Oriented, Normal Cognition, No Motor/Sensory Deficits Psychiatric: Normal Affect, Anxious Skin Exam: Warm, Dry Lymphatic: No Adenopathy Course - Vital Signs Last Recorded V/S: Last Vital Signs Temp 36.7 C 12/17/20 17:58 Pulse 64 12/17/20 19:16 Resp 20 12/17/20 19:16 BP 127/77 12/17/20 19:16 Pulse Ox 99 12/17/20 19:16 - Orders/Labs/Meds Orders: Active Orders 24 hr Category Date Time Status Sodium Chloride 0.9% [Normal Saline] 1,000 ml Med 12/17/20 19:00 Active IV ASDIRECTED Sodium Chloride 0.9% [Saline Flush] Med 12/17/20 18:57 Active 10 ml FLUSH ASDIRECTED PRN Saline Lock Insert [OM.PC] Routine Oth 12/17/20 18:57 Ordered Medication Orders Sodium Chloride (Normal Saline) 1,000 mls @ 999 mls/hr IV ASDIRECTED CHRIS Last Admin: 12/17/20 19:13 Dose: 999 mls/hr Documented by: ELSY Sodium Chloride (Sodium Chloride 0.9% 10 Ml Syringe) 10 ml FLUSH ASDIRECTED PRN PRN Reason: Keep Vein Open Last Admin: 12/17/20 19:13 Dose: 10 ml Documented by: ELSY Labs: Laboratory Tests 12/17/20 12/17/20 Range/Units 19:10 19:10 WBC 9.4 (4.5-11.0) K/uL RBC 5.54 (4.30-5.90) M/uL Hgb 17.2 H (12.0-15.0) g/dL Hct 49.1 (40.0-54.0) % MCV 89 (80-98) fL MCH 31 (27-31) pg MCHC 35 (32-36) % Plt Count 295 (150-400) K/uL Neut % (Auto) 76.5 H (36-66) % Lymph % (Auto) 11.9 L (24-44) % [place] % (Auto) 11.5 H (2-6) % Eos % (Auto) 0.0 L (2-4) % Baso % (Auto) 0.1 (0-1) % Sodium 137 L (140-148) mmol/L Potassium 3.3 L (3.6-5.2) mmol/L Chloride 97 L (100-108) mmol/L Carbon Dioxide 27 (21-32) mmol/L Anion Gap 16.3 H (5.0-14.0) mmol/L BUN 11 (7-18) mg/dL Creatinine 1.0 (0.8-1.3) mg/dL Est Cr Clr Drug Dosing 115.54 mL/min Estimated GFR (MDRD) > 60 (>60) Glucose 113 H (74-106) mg/dL Calcium 9.1 (8.5-10.1) mg/dL Total Bilirubin 0.9 (0.2-1.0) mg/dL AST 18 (15-37) U/L ALT 48 (12-78) U/L Alkaline Phosphatase 83 (46-116) U/L Total Protein 7.5 (6.4-8.2) g/dL Albumin 4.3 (3.4-5.0) g/dL Globulin 3.2 (2.3-3.5) g/dL Albumin/Globulin Ratio 1.3 (1.2-2.2) Lipase 75 (73-393) U/L Meds: Medications Generic Name Dose Route Start Last Admin Trade Name Freq PRN Reason Stop Dose Admin Sodium Chloride 1,000 mls @ 999 mls/hr 12/17/20 19:00 12/17/20 19:13 Normal Saline IV 999 mls/hr ASDIRECTED CHRIS Administration Sodium Chloride 10 ml 12/17/20 18:57 12/17/20 19:13 Sodium Chloride 0.9% 10 Ml Syringe FLUSH 10 ml ASDIRECTED PRN Administration Keep Vein Open Discontinued Medications Generic Name Dose Route Start Last Admin Trade Name Tanika PRN Reason Stop Dose Admin Ondansetron HCl 4 mg 12/17/20 18:57 12/17/20 19:13 Ondansetron 4 Mg/2 Ml Sdv IVPUSH 12/17/20 18:58 4 mg ONETIME ONE Administration - Re-Assessments/Exams Free Text/Narrative Re-Assessment/Exam: 12/17/20 20:06 the patient's symptoms and exam are consistent with an acute viral gastroenteritis. Labs were obtained showing a normal CBC and comprehensive metabolic panel except for a sodium 137 and a potassium of 3.3. The patient was given a liter of IV normal saline and Zofran 4 mg IV. He did have some improvement of symptoms after this but still feels ill. I did explain that his body does a fairly good job on its own of eliminating this infection and that antibiotics are not going to help but rather make his diarrhea worse. I will put him on a course of Zofran for nausea control and encouraged him to take frequent small amounts of fluids to remain hydrated. He may also follow the BRAT diet which will help replete his potassium as well. At this time he suitable for discharge home. Indications to return to the ED were discussed. All questions were answered prior to discharge. Departure - Departure Time of Disposition: 20:17 Disposition: Home, Self-Care 01 Clinical Impression: Viral gastroenteritis due to [place]-like agent, Dehydration - Discharge Information Instructions: Viral Gastroenteritis, Adult, [id number], Dehydration, Adult, [id number] Referrals: PCP,None [Primary Care Provider] - Forms: ED Department Discharge Care Plan Goals: You have a viral stomach flu called gastroenteritis is likely related to norovirus or [place] virus. We are putting you on Zofran 4 mg ODT that you may take every 8 hours to control your nausea and vomiting. I would encourage you to take frequent small amounts of fluids at room temperature to remain hydrated. I would not take more than 2 to 3 ounces every 15 minutes which will reduce her likelihood of vomiting. Antibiotics will not help and in fact will make her diarrhea worse. Fluids, rest, and time will be the cure for this ailment. Good hand hygiene after using the bathroom is important because you can reinfect yourself with this very easily. Sepsis Event Note (ED) - Evaluation Sepsis Screening Result: No Definite Risk - Focused Exam Vital Signs: Vital Signs Temp Pulse Resp BP Pulse Ox 12/17/20 19:16 64 20 127/77 99 12/17/20 17:58 36.7 C 90 16 143/90 H 98 12/17/20 17:51 36.7 C 90 16 143/90 H 98 - Problem List & Annotations (1) Dehydration SNOMED Code(s): 53616565 Code(s): E86.0 - DEHYDRATION Status: Acute Priority: Medium Current Visit: Yes (2) Viral gastroenteritis due to [place]-like agent Status: Acute Priority: High Current Visit: Yes - Problem List Review Problem List Initiated/Reviewed/Updated: Yes - My Orders Last 24 Hours: My Active Orders 12/17/20 18:57 Sodium Chloride 0.9% [Saline Flush] 10 ml FLUSH ASDIRECTED PRN Saline Lock Insert [OM.PC] Routine 12/17/20 19:00 Sodium Chloride 0.9% [Normal Saline] 1,000 ml IV ASDIRECTED - Assessment/Plan Last 24 Hours: My Active Orders 12/17/20 18:57 Sodium Chloride 0.9% [Saline Flush] 10 ml FLUSH ASDIRECTED PRN Saline Lock Insert [OM.PC] Routine 12/17/20 19:00 Sodium Chloride 0.9% [Normal Saline] 1,000 ml IV ASDIRECTED
== END 2020-12-17 20:38 | disposition home or self-care (01) ==
LOC: JP.ED 17:34
DX: A08.4 Viral intestinal infection, unspecified (principal); E86.0 Dehydration; K21.9 Gastro-esophageal reflux disease without esophagitis; Z79.899 Other long term (current) drug therapy; Z86.16 Personal history of COVID-19
CPT/HCPCS: 36415; 80053; 83690; 85025; 96374; 99284; J2405; J7030

== ENCOUNTER 2021-01-14 01:32 | Emergency (ER) | payer OTHER ==
[2021-01-14 02:07] VITALS: BP 156/105; PULSE 76
[2021-01-14] MEDS ORDERED: Haloperidol Lactate 5 MG/ML SDV IVPUSH ONE (02:17)
[2021-01-14] MEDS ORDERED: Sodium Chloride 0.9% 10 ML Syringe FLUSH PRN (02:17)
--- NOTE | 2021-01-14 02:37 | EDM.PDOC ---
ED HPI GENERAL MEDICAL PROBLEM - General Chief Complaint: Gastrointestinal Problem Stated Complaint: VOMITING Time Seen by Provider: 01/14/21 02:00 Source of Information: Reports: Patient, Old Records History Limitations: Reports: No Limitations - History of Present Illness INITIAL COMMENTS - FREE TEXT/NARRATIVE: Сергей is a 20-year-old male presenting to the ED for evaluation of tractable nausea and vomiting for the last 2 days leading to hematemesis x2 today. 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 He states that he has been throwing up many times in the last 2 days and has not had any bowel movement. He has had difficulty keeping fluids or food down. He will not admit to any recent cannabis use, however, there is an odor of cannabis on his clothing. He stated that today "he got freaked out when he started vomiting blood". He had been vomiting and retching many times prior to that. He denies any dark or tarry stools. He has not had any lightheadedness, shortness of breath, chest pain or back pain. He is complaining of epigastric discomfort and low abdominal pain. Abdominal Pain Score (Numeric/FACES): 10 - Related Data Allergies Allergy/AdvReac Type Severity Reaction Status Date / Time No Known Allergies Allergy Verified 01/14/21 01:50 Home Meds: Home Meds Omeprazole 20 mg PO BID 05/06/18 [History] Citalopram [Citalopram HBr] 10 mg PO DAILY 11/09/19 [History] Past Medical History HEENT History: Reports: Impaired Vision, Other (See Below) Other HEENT History: Glasses Gastrointestinal History: Reports: GERD Musculoskeletal History: Reports: Fracture, Other (See Below) Other Musculoskeletal History: right foot, left wrist Neurological History: Reports: Concussion Psychiatric History: Reports: ADHD, Anxiety, Depression - Infectious Disease History Infectious Disease History: Reports: Chicken Pox, Novel Coronavirus - Past Surgical History Head Surgeries/Procedures: Reports: None HEENT Surgical History: Reports: None GI Surgical History: Reports: Cholecystectomy, Colonoscopy, EGD Social & Family History - Family History Family Medical History: No Pertinent Family History - Tobacco Use Tobacco Use Status *Q: Never Tobacco User - Caffeine Use Caffeine Use: Reports: Coffee, Energy Drinks, Soda Other Caffeine Use: occasionally - Recreational Drug Use Recreational Drug Use: No ED ROS GENERAL - Review of Systems Review Of Systems: See Below Constitutional: Reports: Chills, Diaphoresis, Decreased Appetite HEENT: Reports: No Symptoms Respiratory: Reports: No Symptoms Cardiovascular: Reports: No Symptoms Endocrine: Reports: No Symptoms GI/Abdominal: Reports: Abdominal Pain (Epigastric), Decreased Appetite, Hematemesis, Nausea, Vomiting : Reports: No Symptoms Musculoskeletal: Reports: No Symptoms Skin: Reports: No Symptoms Neurological: Reports: No Symptoms Psychiatric: Reports: No Symptoms Hematologic/Lymphatic: Reports: No Symptoms Immunologic: Reports: No Symptoms ED EXAM, GI/ABD - Physical Exam Exam: See Below Exam Limited By: No Limitations General Appearance: Alert, Anxious, Mild Distress Eyes: Bilateral: EOMI Throat/Mouth: Normal Inspection, Normal Oropharynx, Normal Voice, No Airway Compromise Head: Atraumatic, Normocephalic Neck: Normal Inspection, Supple Respiratory/Chest: No Respiratory Distress, Lungs Clear, Normal Breath Sounds Cardiovascular: Normal Peripheral Pulses, Regular Rate, Rhythm, Tachycardia GI/Abdominal Exam: Soft, No Organomegaly, No Distention, Tender (Epigastric tenderness to palpation), Abnormal Bowel Sounds (Diminished bowel sounds). No: Guarding, Rigid, Rebound Rectal (Males) Exam: Deferred Back Exam: Normal Inspection, Full Range of Motion Extremities: Normal Inspection, Normal Range of Motion, Normal Capillary Refill Neurological: Alert, Oriented, Normal Cognition, No Motor/Sensory Deficits Psychiatric: Anxious Skin Exam: Warm, Dry Lymphatic: No Adenopathy Course - Vital Signs Last Recorded V/S: Last Vital Signs Temp 36.8 C 01/14/21 01:46 Pulse 76 01/14/21 01:46 Resp 21 H 01/14/21 01:46 BP 156/105 H 01/14/21 01:46 Pulse Ox 99 01/14/21 01:46 - Orders/Labs/Meds Orders: Active Orders 24 hr Category Date Time Status Abdomen Pelvis w Cont [CT] Stat Exams 01/14/21 02:17 Ordered Sodium Chloride 0.9% [Saline Flush] Med 01/14/21 02:17 Active 10 ml FLUSH ASDIRECTED PRN Saline Lock Insert [OM.PC] Routine Oth 01/14/21 02:17 Ordered Medication Orders Sodium Chloride (Sodium Chloride 0.9% 10 Ml Syringe) 10 ml FLUSH ASDIRECTED PRN PRN Reason: Keep Vein Open Last Admin: 01/14/21 03:01 Dose: 10 ml Documented by: EDWIN Labs: Laboratory Tests 01/14/21 01/14/21 Range/Units 02:40 02:40 WBC 10.9 (4.5-11.0) K/uL RBC 5.88 (4.30-5.90) M/uL Hgb 18.4 H* (12.0-15.0) g/dL Hct 52.7 (40.0-54.0) % MCV 90 (80-98) fL MCH 31 (27-31) pg MCHC 35 (32-36) % Plt Count 319 (150-400) K/uL Neut % (Auto) 80.3 H (36-66) % Lymph % (Auto) 10.1 L (24-44) % [place] % (Auto) 9.5 H (2-6) % Eos % (Auto) 0.0 L (2-4) % Baso % (Auto) 0.1 (0-1) % Sodium 138 L (140-148) mmol/L Potassium 3.5 L (3.6-5.2) mmol/L Chloride 98 L (100-108) mmol/L Carbon Dioxide 28 (21-32) mmol/L Anion Gap 15.5 H (5.0-14.0) mmol/L BUN 12 (7-18) mg/dL Creatinine 0.9 (0.8-1.3) mg/dL Est Cr Clr Drug Dosing 127.65 mL/min Estimated GFR (MDRD) > 60 (>60) Glucose 118 H (74-106) mg/dL Calcium 9.0 (8.5-10.1) mg/dL Total Bilirubin 1.0 (0.2-1.0) mg/dL AST 48 H D (15-37) U/L ALT 90 H (12-78) U/L Alkaline Phosphatase 107 (46-116) U/L Total Protein 7.5 (6.4-8.2) g/dL Albumin 4.2 (3.4-5.0) g/dL Globulin 3.3 (2.3-3.5) g/dL Albumin/Globulin Ratio 1.3 (1.2-2.2) Lipase 54 L (73-393) U/L Meds: Medications Generic Name Dose Route Start Last Admin Trade Name Tanika PRN Reason Stop Dose Admin Sodium Chloride 10 ml 01/14/21 02:17 01/14/21 03:01 Sodium Chloride 0.9% 10 Ml Syringe FLUSH 10 ml ASDIRECTED PRN Administration Keep Vein Open Discontinued Medications Generic Name Dose Route Start Last Admin Trade Name Tanika PRN Reason Stop Dose Admin Haloperidol Lactate 5 mg 01/14/21 02:17 01/14/21 03:01 Haloperidol Lactate 5 Mg/Ml Sdv IVPUSH 01/14/21 02:18 5 mg ONETIME ONE Administration Sodium Chloride 72 mls @ 3.2 mls/sec 01/14/21 03:13 01/14/21 03:27 Normal Saline IV 01/14/21 03:14 3.2 mls/sec ASDIRECTED STA Administration Iopamidol 100 ml 01/14/21 03:13 01/14/21 03:27 Iopamidol 612 Mg/Ml 100 Ml Bottle IV 01/14/21 03:14 100 ml . DIRECTED STA Administration - Radiology Interpretation Free Text/Narrative:: CT of the abdomen and pelvis with contrast. There is no acute abnormalities noted. The patient is status post cholecystectomy. There is no free fluid in the abdomen or pelvis. There is no free air in the abdomen. - Re-Assessments/Exams Free Text/Narrative Re-Assessment/Exam: 01/14/21 03:41 I reviewed the patient's labs showing a leukocyte count of 10.9 with a normal differential. His hemoglobin is 18.4 with a hematocrit of 52.7 and a platelet count of 319,000. This is consistent with his previous hemoglobin levels in the past. It likely is due to volume contraction from repeated vomiting. He is comprehensive metabolic panel is significant for a sodium of 138, potassium 3.5, chloride of 98 with a bicarbonate of 28, BUN of 12 with a creatinine of 0.9 and a glucose of 118. Lipase is normal at 54. AST is mildly elevated at 48 with an ALT of 90. Overall, this appears to be cyclic vomiting likely secondary to cannabinoid use. The patient was given Haldol 5 mg IV push for his nausea and has had improvement in symptoms. We will put him on oral Zofran ODT for his nausea. Again we discussed discontinuing the use of cannabis, however, not optimistic that he will take my advice. Departure - Departure Time of Disposition: 03:45 Disposition: Home, Self-Care 01 Clinical Impression: Cyclic vomiting syndrome, Valerie-Martinez tear, Marijuana abuse - Discharge Information Instructions: Valerie-Martinez Syndrome, Nausea and Vomiting, Adult, [id number] Referrals: PCP,None [Primary Care Provider] - Forms: ED Department Discharge Care Plan Goals: Your work-up today has shown again that this is likely cyclic vomiting which may be contributed to by continued cannabis use. We will put you on oral Zofran to control your nausea again. The bleeding that you are seen in the emesis is due to a Valerie-Martinez tear which is from repeated retching causing a small tear in the esophagus. I recommend picking up [id number] Prilosec and taking it twice daily for 14 days to help heal the esophagus. Your blood counts remain normal so I am not concerned that you are hemorrhaging but rather this is small bleeding from the tear which is neither dangerous nor worrisome. Certainly if you start vomiting large quantities of what appeared to be coffee-ground emesis we should see you back right away. Sepsis Event Note (ED) - Evaluation Sepsis Screening Result: No Definite Risk - Focused Exam Vital Signs: Vital Signs Temp Pulse Resp BP Pulse Ox 01/14/21 01:46 36.8 C 76 21 H 156/105 H 99 01/14/21 01:40 36.8 C 76 21 H 156/105 H 99 - Problem List & Annotations (1) Cyclic vomiting syndrome Status: Acute Priority: High Current Visit: Yes (2) Valerie-Martinez tear SNOMED Code(s): 122923365 Code(s): K22.6 - GASTRO-ESOPHAGEAL LACERATION-HEMORRHAGE SYNDROME Status: Acute Priority: High Current Visit: Yes (3) Marijuana abuse SNOMED Code(s): 64715073 Code(s): F12.10 - CANNABIS ABUSE, UNCOMPLICATED Status: Chronic Priority: Medium Current Visit: Yes - Problem List Review Problem List Initiated/Reviewed/Updated: Yes - My Orders Last 24 Hours: My Active Orders 01/14/21 02:17 Abdomen Pelvis w Cont [CT] Stat Sodium Chloride 0.9% [Saline Flush] 10 ml FLUSH ASDIRECTED PRN Saline Lock Insert [OM.PC] Routine - Assessment/Plan Last 24 Hours: My Active Orders 01/14/21 02:17 Abdomen Pelvis w Cont [CT] Stat Sodium Chloride 0.9% [Saline Flush] 10 ml FLUSH ASDIRECTED PRN Saline Lock Insert [OM.PC] Routine
[2021-01-14] MEDS ORDERED: Iopamidol 612 MG/ML 100 ML Bottle IV STA (03:13)
--- NOTE | 2021-01-14 04:42 | CRLCT ---
For Patients: As a result of the Century Cures Act, medical imaging exams and procedure reports are released immediately into your electronic medical record. You may view this report before your referring provider. If you have questions, please contact your health care provider. INDICATION: Hematemesis. TECHNIQUE: Volumetric helical scanning of the abdomen and pelvis was performed with 100 cc of Isovue 300 contrast material IV. Coronal and sagittal reconstructions were obtained. COMPARISON: None. FINDINGS: There is no evidence of bowel obstruction or inflammation. A normal appendix is noted. No free fluid is demonstrated. Post op changes of cholecystectomy are demonstrated. The bile ducts, liver, spleen, adrenal glands, kidneys and pancreas are negative. No lymphadenopathy or free fluid is demonstrated. The prostate is at the upper limit of normal. The lung bases are clear, and the heart size is normal. IMPRESSION: 1. Etiology of hematemesis not evident. 2. Post cholecystectomy. Please note that all CT scans at this facility use dose modulation, iterative reconstruction, and/or weight-based dosing when appropriate to reduce radiation dose to as low as reasonably achievable. Dictated by Phil Gallardo MD @ 01/14/2021 4:41:[address] Phil Gallardo @ Jan 14 2021 4:41AM
== END 2021-01-14 04:07 | disposition home or self-care (01) ==
LOC: JP.ED 01:32
DX: K22.6 Gastro-esophageal laceration-hemorrhage syndrome (principal); R11.15 Cyclical vomiting syndrome unrelated to migraine; F12.10 Cannabis abuse, uncomplicated; Z86.16 Personal history of COVID-19; Z79.899 Other long term (current) drug therapy
CPT/HCPCS: 36415; 74177; 80053; 83690; 85025; 96374; 99284; J1630; Q9967

== ENCOUNTER 2022-02-14 13:23 | Emergency (ER) | payer OTHER, MEDICAID ==
[2022-02-14 13:38] VITALS: BP 133/92; PULSE 77
[2022-02-14] MEDS ORDERED: Ondansetron 4 MG/2 ML SDV IVPUSH ONE (13:49)
[2022-02-14] MEDS ORDERED: Sodium Chloride 0.9% 10 ML Syringe FLUSH PRN (13:49)
[2022-02-14] MEDS ORDERED: Sodium Chloride 0.9% 1,000 ML IV ONE (14:10)
== END 2022-02-14 16:10 | disposition home or self-care (01) ==
LOC: JP.ED 13:23
DX: R11.2 Nausea with vomiting, unspecified (principal); K21.9 Gastro-esophageal reflux disease without esophagitis; Z79.899 Other long term (current) drug therapy; Z86.16 Personal history of COVID-19
CPT/HCPCS: 96361; 96374; 99283; J2405; J3490; J7030

== ENCOUNTER 2022-02-15 19:18 | Emergency (ER) | payer OTHER, MEDICAID ==
[2022-02-15 19:48] VITALS: BP 142/100; PULSE 58
[2022-02-15] MEDS ORDERED: Lactated Ringers 1,000 ML IV ONE (20:54)
[2022-02-15] MEDS ORDERED: Sodium Chloride 0.9% 10 ML Syringe FLUSH PRN (20:54)
[2022-02-15] MEDS ORDERED: Ondansetron 4 MG/2 ML SDV IVPUSH ONE (20:54)
[2022-02-15] MEDS ORDERED: LORazepam 2 MG/ML SDV IVPUSH ONE (22:31)
== END 2022-02-15 23:45 | disposition home or self-care (01) ==
LOC: JP.ED 19:18
DX: F12.188 Cannabis abuse with other cannabis-induced disorder (principal); K21.9 Gastro-esophageal reflux disease without esophagitis; Z79.899 Other long term (current) drug therapy; Z86.16 Personal history of COVID-19; Z90.49 Acquired absence of other specified parts of digestive tract
CPT/HCPCS: 36415; 80048; 83605; 85025; 96361; 96374; 96375; 99284; J2060; J2405; J3490; J7120

== ENCOUNTER 2022-03-08 22:17 | Emergency (ER) | payer OTHER, MEDICAID ==
[2022-03-08 22:35] VITALS: BP 112/74; PULSE 91
[2022-03-08] MEDS ORDERED: Sodium Chloride 0.9% 10 ML Syringe FLUSH PRN (22:40)
[2022-03-08] MEDS ORDERED: Ondansetron 4 MG/2 ML SDV IVPUSH ONE (22:40)
[2022-03-08] MEDS ORDERED: Sodium Chloride 0.9% 1,000 ML IV SCH (22:45)
[2022-03-08 23:16] LABS: ESTIMATED GFR 87 mL/min (>60)
== END 2022-03-09 00:08 | disposition home or self-care (01) ==
LOC: JP.ED 22:17
DX: R11.2 Nausea with vomiting, unspecified (principal); R19.7 Diarrhea, unspecified; K21.9 Gastro-esophageal reflux disease without esophagitis; Z79.899 Other long term (current) drug therapy; Z86.16 Personal history of COVID-19; Z20.822 Contact with and (suspected) exposure to COVID-19
CPT/HCPCS: 36415; 80053; 83605; 83690; 85025; 96361; 96374; 99284-25; J2405; J3490; J7030; U0002

== ENCOUNTER 2022-03-17 23:02 | Emergency (ER) | payer OTHER, MEDICAID ==
[2022-03-18 00:12] VITALS: BP 143/106; PULSE 96
[2022-03-18] MEDS ORDERED: Sodium Chloride 0.9% 10 ML Syringe FLUSH PRN (00:41)
[2022-03-18] MEDS ORDERED: Ondansetron 4 MG/2 ML SDV IVPUSH ONE (00:41)
[2022-03-18] MEDS ORDERED: Sodium Chloride 0.9% 1,000 ML IV SCH (00:45)
[2022-03-18 01:25] LABS: ESTIMATED GFR 123 mL/min (>60)
[2022-03-18] MEDS ORDERED: Prochlorperazine 10 MG/2 ML SDV IVPUSH ONE (02:07)
== END 2022-03-18 02:26 | disposition home or self-care (01) ==
LOC: JP.ED 23:02
DX: R11.15 Cyclical vomiting syndrome unrelated to migraine (principal); E86.0 Dehydration; K21.9 Gastro-esophageal reflux disease without esophagitis; Z79.899 Other long term (current) drug therapy; Z86.16 Personal history of COVID-19
CPT/HCPCS: 36415; 80053; 83690; 85025; 86140; 96361; 96374; 96375; 99284; J0780; J2405; J3490; J7030

== ENCOUNTER 2022-03-23 09:57 | Emergency (ER) | payer OTHER, MEDICAID ==
[2022-03-23 10:11] VITALS: BP 142/95; PULSE 85
== END 2022-03-23 12:52 | disposition home or self-care (01) ==
LOC: JP.ED 09:57
DX: R11.15 Cyclical vomiting syndrome unrelated to migraine (principal); Z79.899 Other long term (current) drug therapy; Z86.16 Personal history of COVID-19; Z90.49 Acquired absence of other specified parts of digestive tract
CPT/HCPCS: 99283

== ENCOUNTER 2022-07-07 23:55 | Emergency (ER) | payer OTHER, MEDICAID ==
[2022-07-08] MEDS ORDERED: Ondansetron 4 MG/2 ML SDV IVPUSH ONE ×2 (00:56→02:10)
[2022-07-08] MEDS ORDERED: LORazepam 2 MG/ML SDV IVPUSH ONE ×2 (00:57→03:57)
[2022-07-08] MEDS: Sodium Chloride 0.9% 1,000 ML IV SCH ×2 (01:09→02:51)
[2022-07-08 02:00] LABS: ESTIMATED GFR 122 mL/min (>60)
[2022-07-08] MEDS ORDERED: Sodium Chloride 0.9% 1,000 ML IV SCH (02:00)
[2022-07-08 05:14] VITALS: BP 141/95; PULSE 84
== END 2022-07-08 05:21 | disposition home or self-care (01) ==
LOC: JP.ED 23:55
DX: R11.15 Cyclical vomiting syndrome unrelated to migraine (principal); F17.210 Nicotine dependence, cigarettes, uncomplicated; Z86.16 Personal history of COVID-19
CPT/HCPCS: 36415; 80053; 80305; 81001; 85025; 96361; 96374; 96375; 96376; 99284; J2060; J2405; J7030

== ENCOUNTER 2022-07-09 23:39 | Emergency (ER) | payer OTHER, MEDICAID ==
[2022-07-09 23:53] VITALS: BP 162/102; PULSE 73
[2022-07-10] MEDS ORDERED: LORazepam 2 MG/ML SDV IVPUSH ONE (00:04)
[2022-07-10] MEDS ORDERED: Prochlorperazine 10 MG/2 ML SDV IVPUSH ONE (00:05)
[2022-07-10] MEDS ORDERED: Sodium Chloride 0.9% 1,000 ML IV SCH (00:15)
== END 2022-07-10 07:42 | disposition home or self-care (01) ==
LOC: JP.ED 23:39
DX: E86.0 Dehydration (principal); R11.15 Cyclical vomiting syndrome unrelated to migraine; F17.210 Nicotine dependence, cigarettes, uncomplicated; Z86.16 Personal history of COVID-19; Z90.49 Acquired absence of other specified parts of digestive tract
CPT/HCPCS: 96361; 96374; 96375; 99283; J0780; J2060; J7030

== ENCOUNTER 2022-08-14 00:49 | Emergency (ER) | payer OTHER, MEDICAID ==
[2022-08-14] MEDS ORDERED: Sodium Chloride 0.9% 10 ML Syringe FLUSH PRN (02:11)
[2022-08-14] MEDS ORDERED: LORazepam 2 MG/ML SDV IVPUSH ONE (02:11)
[2022-08-14] MEDS ORDERED: Sodium Chloride 0.9% 1,000 ML IV SCH ×2 (02:15→03:45)
[2022-08-14 04:22] VITALS: BP 138/96; PULSE 87
== END 2022-08-14 05:12 | disposition home or self-care (01) ==
LOC: JP.ED 00:49
DX: R11.15 Cyclical vomiting syndrome unrelated to migraine (principal)
CPT/HCPCS: 96361; 96374; 99283; 99283-25; J2060; J3490; J7030

== ENCOUNTER 2022-08-18 23:19 | Emergency (ER) | payer OTHER, MEDICAID ==
[2022-08-18 23:39] VITALS: BP 131/96; PULSE 66
[2022-08-18] MEDS ORDERED: Sodium Chloride 0.9% 10 ML Syringe FLUSH PRN (23:45)
[2022-08-18] MEDS ORDERED: Lactated Ringers 1,000 ML IV SCH (23:45)
[2022-08-18] MEDS ORDERED: LORazepam 2 MG/ML SDV IVPUSH ONE (23:46)
[2022-08-18] MEDS ORDERED: Ondansetron 4 MG/2 ML SDV IVPUSH ONE (23:46)
[2022-08-19 00:35] LABS: ESTIMATED GFR 122 mL/min (>60)
[2022-08-19] MEDS ORDERED: Sodium Chloride 0.9% 500 ML IV ONE (01:12)
[2022-08-19] MEDS ORDERED: Metoclopramide 10 MG/2 ML SDV IVPUSH ONE (01:24)
== END 2022-08-19 03:30 | disposition home or self-care (01) ==
LOC: JP.ED 23:19
DX: R11.2 Nausea with vomiting, unspecified (principal); E86.0 Dehydration; D75.1 Secondary polycythemia; K21.9 Gastro-esophageal reflux disease without esophagitis; F17.210 Nicotine dependence, cigarettes, uncomplicated; Z86.16 Personal history of COVID-19
CPT/HCPCS: 36415; 80053; 82668; 82728; 83690; 85025; 96361; 96374; 96375; 99283; 99284-25; J2060; J2405; J2765; J7040; J7120

== ENCOUNTER 2022-08-20 22:37 | Emergency (ER) | payer OTHER, MEDICAID ==
[2022-08-20 22:53] VITALS: BP 135/101; PULSE 93
[2022-08-20] MEDS ORDERED: LORazepam 2 MG/ML SDV IVPUSH ONE (22:59)
[2022-08-20] MEDS ORDERED: Prochlorperazine 10 MG/2 ML SDV IVPUSH ONE (22:59)
[2022-08-20] MEDS ORDERED: Sodium Chloride 0.9% 10 ML Syringe FLUSH PRN (22:59)
[2022-08-20] MEDS ORDERED: Sodium Chloride 0.9% 1,000 ML IV SCH (23:00)
[2022-08-20 23:56] LABS: ESTIMATED GFR 108 mL/min (>60)
[2022-08-21] MEDS ORDERED: Metoclopramide 10 MG/2 ML SDV IVPUSH ONE (00:23)
== END 2022-08-21 01:26 | disposition home or self-care (01) ==
LOC: JP.ED 22:37
DX: E86.0 Dehydration (principal); R11.15 Cyclical vomiting syndrome unrelated to migraine; D75.1 Secondary polycythemia
CPT/HCPCS: 36415; 80053; 83605; 83690; 85025; 96361; 96374; 96375; 99284; J0780; J2060; J2765; J3490; J7030

== ENCOUNTER 2022-08-29 23:14 | Emergency (ER) | payer OTHER, MEDICAID ==
[2022-08-29 23:32] VITALS: BP 133/95; PULSE 93
[2022-08-29] MEDS ORDERED: Metoclopramide 10 MG/2 ML SDV IVPUSH ONE (23:46)
[2022-08-29] MEDS ORDERED: Sodium Chloride 0.9% 10 ML Syringe FLUSH PRN (23:46)
[2022-08-29] MEDS ORDERED: LORazepam 2 MG/ML SDV IVPUSH ONE (23:46)
[2022-08-30] MEDS: Lactated Ringers 1,000 ML IV ONE (00:12)
[2022-08-30] MEDS ORDERED: Lactated Ringers 1,000 ML IV ONE (00:56)
== END 2022-08-30 03:00 | disposition home or self-care (01) ==
LOC: JP.ED 23:14
DX: R11.2 Nausea with vomiting, unspecified (principal); F17.210 Nicotine dependence, cigarettes, uncomplicated; Z86.16 Personal history of COVID-19
CPT/HCPCS: 36415; 80048; 83605; 85025; 96361; 96374; 96375; 99284; J2060; J2765; J3490; J7120

== ENCOUNTER 2022-09-01 20:12 | Emergency (ER) | payer OTHER, MEDICAID ==
[2022-09-01] MEDS ORDERED: Prochlorperazine 10 MG/2 ML SDV IVPUSH ONE (22:03)
[2022-09-01] MEDS ORDERED: Sodium Chloride 0.9% 10 ML Syringe FLUSH PRN (22:03)
[2022-09-01 22:36] LABS: ESTIMATED GFR 122 mL/min (>60)
[2022-09-01] MEDS ORDERED: Sodium Chloride 0.9% 1,000 ML IV SCH (23:00)
[2022-09-02] MEDS ORDERED: Sodium Chloride 0.9% 1,000 ML IV SCH (00:15)
[2022-09-02] MEDS ORDERED: Metoclopramide 10 MG/2 ML SDV IVPUSH ONE (00:16)
[2022-09-02 01:26] VITALS: BP 125/85; PULSE 80
== END 2022-09-02 01:26 | disposition home or self-care (01) ==
LOC: JP.ED 20:12
DX: R11.2 Nausea with vomiting, unspecified (principal); Z86.16 Personal history of COVID-19
CPT/HCPCS: 36415; 80053; 83690; 85025; 96361; 96374; 99284; J0780; J2765; J3490; J7030

== ENCOUNTER 2023-10-28 01:04 | Emergency (ER) | payer OTHER, MEDICAID ==
[2023-10-28 01:16] VITALS: BP 154/104; PULSE 82
[2023-10-28] MEDS: droPERidol 5 MG/2 ML SDV IVPUSH ONE (01:26)
[2023-10-28] MEDS: LORazepam 2 MG/ML SDV IVPUSH ONE (01:27)
[2023-10-28] MEDS: Sodium Chloride 0.9% 1,000 ML IV SCH (01:27)
[2023-10-28] MEDS ORDERED: Sodium Chloride 0.9% 1,000 ML IV SCH (02:30)
== END 2023-10-28 04:15 | disposition home or self-care (01) ==
LOC: JP.ED 01:04
DX: R11.15 Cyclical vomiting syndrome unrelated to migraine (principal); Z86.16 Personal history of COVID-19
CPT/HCPCS: 96361; 96374; 96375; 99283; 99283-25; J1790; J2060; J7030

== ENCOUNTER 2023-10-29 22:11 | Emergency (ER) | payer MEDICAID, OTHER ==
[2023-10-29] MEDS: Sodium Chloride 0.9% 1,000 ML IV SCH (22:35)
[2023-10-29 22:50] LABS: A/G RATIO 1.4 (1.2-2.2); ALANINE AMINOTRANSFERASE,ALT 42 U/L (12-78); ALBUMIN 4.6 g/dL (3.4-5.0); ALKALINE PHOSPHATASE 74 U/L (46-116); ASPARTATE AMNIOTRANSFERASE,AST 25 U/L (15-37); BILIRUBIN TOTAL 0.9 mg/dL (0.2-1.0); BLOOD UREA NITROGEN,BUN 12 mg/dL (7-18); CALCIUM 9.4 mg/dL (8.5-10.1); CARBON DIOXIDE,CO2 27 mmol/L (21-32); CHLORIDE,CL 99 mmol/L (100-108); CREATININE 1.2 mg/dL (0.8-1.3); EST CRCL DRUG DOSING (CG) 88.38 mL/min; ESTIMATED GFR 86 mL/min (>60); GLUCOSE RANDOM 122 mg/dL (74-106); POTASSIUM,K 3.1 mmol/L (3.6-5.2); SODIUM,NA 140 mmol/L (140-148)
[2023-10-29 22:52] LABS: ANION GAP 17.1 mmol/L (5.0-14.0); WHITE BLOOD CELL COUNT,WBC 11.1 K/uL (3.2-11.0)
[2023-10-29 22:53] LABS: HEMOGLOBIN 18.1 g/dL (12.9-16.9); PLATELET COUNT,PLT 328 K/uL (130-375)
[2023-10-29 22:55] LABS: EOSINOPHILS ABSOLUTE MAN 0.11 K/uL (0.00-0.40); EOSINOPHILS PERCENT MAN 1 % (2-4); LYMPHOCYTES ABSOLUTE MAN 1.11 K/uL (0.8-3.3); LYMPHOCYTES PERCENT MAN 10 % (24-44); MONOCYTES ABSOLUTE MAN 0.56 K/uL (0.20-0.90); MONOCYTES PERCENT MAN 5 % (2-6); NEUTROPHILS ABSOLUTE MAN 9.32 K/uL (1.0-7.6); SEG NEUTROPHILS PERCENT MAN 84 % (36-66)
[2023-10-29] MEDS: droPERidol 5 MG/2 ML SDV IVPUSH ONE (23:07)
[2023-10-29] MEDS: LORazepam 2 MG/ML SDV IVPUSH ONE (23:08)
[2023-10-29 23:15] LABS: AMPHETAMINES SCREEN, URINE NEGATIVE (NEGATIVE); BARBITURATE SCREEN,URINE NEGATIVE (NEGATIVE); BENZODIAZEPINES SCREEN,URINE PRESUMPTIVE POSITIVE (NEGATIVE); METHADONE SCREEN, URINE NEGATIVE (NEGATIVE); METHAMPHETAMINES SCREEN, URINE NEGATIVE (NEGATIVE); OXYCODONE SCREEN,URINE NEGATIVE (NEGATIVE); PROPOXYPHENE SCREEN,URINE NEGATIVE (NEGATIVE); THC SCREEN,URINE 50 NG/ML PRESUMPTIVE POSITIVE (NEGATIVE)
[2023-10-30 00:45] VITALS: BP 123/85; PULSE 83
[2023-10-30] MEDS: Sodium Chloride 0.9% 1,000 ML IV SCH (00:55)
== END 2023-10-30 01:04 | disposition home or self-care (01) ==
LOC: EEVIPCON 22:11 → JP.ED 22:11
DX: R11.15 Cyclical vomiting syndrome unrelated to migraine (principal); Z86.16 Personal history of COVID-19; Z90.49 Acquired absence of other specified parts of digestive tract
CPT/HCPCS: 36415; 80053; 80305; 83690; 85025; 96361; 96374; 96375; 99284; J1790; J2060; J7030

== ENCOUNTER 2023-11-29 14:20 | Emergency (ER) | payer MEDICAID, OTHER ==
[2023-11-29 14:37] VITALS: BP 105/69; PULSE 103
== END 2023-11-29 16:02 | disposition home or self-care (01) ==
LOC: JP.ED 14:20
DX: S61.412A Laceration without foreign body of left hand, initial encounter (principal); Z86.16 Personal history of COVID-19; Z90.49 Acquired absence of other specified parts of digestive tract; W26.8XXA Contact with other sharp object(s), not elsewhere classified, initial encounter; Y93.89 Activity, other specified
CPT/HCPCS: 12002; 99282; 99283

== ENCOUNTER 2024-11-07 19:11 | Emergency (ER) | payer MEDICAID, OTHER ==
[2024-11-07 19:37] VITALS: BP 123/82; PULSE 87
[2024-11-07] MEDS: Sodium Chloride 0.9% 1,000 ML IV SCH (19:55)
[2024-11-07] MEDS: Ondansetron 4 MG/2 ML SDV IVPUSH ONE (19:55)
[2024-11-07] MEDS: Sodium Chloride 0.9% 10 ML Syringe FLUSH PRN (19:55)
[2024-11-07 20:13] LABS: A/G RATIO 1.1 (1.2-2.2); ALANINE AMINOTRANSFERASE,ALT 73 U/L (12-78); ALBUMIN 3.8 g/dL (3.4-5.0); ALKALINE PHOSPHATASE 95 U/L (46-116); ASPARTATE AMNIOTRANSFERASE,AST 34 U/L (15-37); BILIRUBIN TOTAL 0.9 mg/dL (0.2-1.0); BLOOD UREA NITROGEN,BUN 11 mg/dL (7-18); CALCIUM 9.1 mg/dL (8.5-10.1); CARBON DIOXIDE,CO2 28 mmol/L (21-32); CHLORIDE,CL 101 mmol/L (100-108); CREATININE 1.1 mg/dL (0.8-1.3); EST CRCL DRUG DOSING (CG) 103.35 mL/min; ESTIMATED GFR 95 mL/min (>60); GLUCOSE RANDOM 146 mg/dL (74-106); POTASSIUM,K 3.3 mmol/L (3.6-5.2); PROTEIN TOTAL,TP 7.2 g/dL (6.4-8.2); SODIUM,NA 140 mmol/L (140-148)
[2024-11-07 20:14] LABS: ANION GAP 14.3 mmol/L (5.0-14.0)
[2024-11-07 20:18] LABS: HEMATOCRIT 45.1 % (38.4-49.7); MEAN CORPUSCULAR HEMOGLOBIN 31.1 pg (31.6-35.5); MEAN CORPUSCULAR HGB CONC 35.5 g/dL (31.6-35.5); MEAN CORPUSCULAR VOLUME 87.6 fL (81.4-99.0); RED BLOOD CELL COUNT 5.15 M/uL (4.14-5.76); WHITE BLOOD CELL COUNT,WBC 5.8 K/uL (3.2-11.0)
== END 2024-11-07 21:05 | disposition home or self-care (01) ==
LOC: JP.ED 19:11
DX: R11.15 Cyclical vomiting syndrome unrelated to migraine (principal); F17.210 Nicotine dependence, cigarettes, uncomplicated; Z86.16 Personal history of COVID-19
CPT/HCPCS: 36415; 80053; 85027; 96361; 96374; 99283; J2405; J7030

== ENCOUNTER 2025-02-06 02:04 | Emergency (ER) | payer SELFPAY ==
[2025-02-06 02:16] VITALS: BP 114/79; PULSE 63
== END 2025-02-06 03:00 | disposition home or self-care (01) ==
LOC: JP.ED 02:04
DX: R11.15 Cyclical vomiting syndrome unrelated to migraine (principal); Z86.16 Personal history of COVID-19; Z90.49 Acquired absence of other specified parts of digestive tract
CPT/HCPCS: 99282; 99283